=== PATIENT | female | born 1945 | race Caucasian/White ===

== ENCOUNTER → 2017-04-18 | Outpatient (CLI) | payer MEDICARE, BC ==
[~2017-04-18] MED LIST: AMOXICILLIN 8751 TAB PO; BIAXIN 500MG T500 MG PO; MOBIC 7.5MG7.5 MG PO; NEXIUM 20MG20 MG PO; SYNTHROID 0.0.025 MG PO; TENORMIN 5050 MG/TAB PO
== END ==
LOC: MC.RAD 08:52
DX: Z12.31 Encounter for screening mammogram for malignant neoplasm of breast (principal)

== ENCOUNTER → 2018-04-19 | Outpatient (CLI) | payer MEDICARE, BC | LOC: MC.RAD 10:43 | DX: Z12.31 Encounter for screening mammogram for malignant neoplasm of breast (principal) ==

== ENCOUNTER → 2019-07-14 | Outpatient (CLI) | payer MEDICARE, BC | LOC: MC.RAD 06-17 10:00 | DX: Z12.31 Encounter for screening mammogram for malignant neoplasm of breast (principal) ==

== ENCOUNTER → 2020-07-15 | Outpatient (CLI) | payer MEDICARE, BC ==
[~2020-07-15] MED LIST changes: +ASPIRIN E.C. 8181 MG PO; +BREO IH; +HYZAAR 50-12.1 UDTAB PO; +TOPROL XL 25MG25 MG PO; +VITAMIN D 400400 IU PO; +VITAMINC1000TA PO
== END ==
LOC: MC.RAD 12:42
DX: Z12.31 Encounter for screening mammogram for malignant neoplasm of breast (principal)

== ENCOUNTER 2020-08-06 09:14 | Day surgery (SDC) | payer MEDICARE, BC ==
[~2020-08-06] VITALS: Ht 170.2 cm; Wt 89.8 kg
[2020-08-06] VITALS (11 sets, daily range): BP systolic 140–160; BP diastolic 58–91; PULSE 45–57; TEMP 97.9
[~2020-08-06 09:14] MED LIST changes: -ASPIRIN E.C. 8181 MG PO; -BREO IH; -HYZAAR 50-12.1 UDTAB PO; -TOPROL XL 25MG25 MG PO; -VITAMIN D 400400 IU PO; -VITAMINC1000TA PO
[2020-08-06] MEDS ORDERED: HYZAAR 50-12.1 UDTAB PO (09:43)
[2020-08-06] MEDS ORDERED: BREO IH (09:44)
[2020-08-06] MEDS ORDERED: ASPIRIN E.C. 8181 MG PO (09:44)
[2020-08-06] MEDS ORDERED: TOPROL XL 25MG25 MG PO (09:46)
[2020-08-06] MEDS ORDERED: VITAMINC1000TA PO (09:46)
[2020-08-06] MEDS ORDERED: VITAMIN D 400400 IU PO (09:46)
[2020-08-06 09:54] LABS: HEMATOCRIT 40.4 % (37.0-47.0); HEMOGLOBIN 13.3 g/dl (12.5-16.0); MEAN CELL VOLUME 85 fl (80.0-100.0); MEAN CORPUSCULAR HEMOGLOBIN 28 pg (27.0-31.0); MEAN CORPUSCULAR HGB CONC 33 g/dl (33.0-37.0); MEAN PLATELET VOLUME 10.5 fl (7.4-10.4); PLATELET COUNT 239 K/mm3 (130-400); RED BLOOD COUNT 4.77 M/mm3 (4.10-5.30); REDCELL DISTRIBUTION WIDTH-CV 14.6 % (11.5-14.5)
[2020-08-06 10:06] LABS: INR 1.2 (0.8-3.0); PROTHROMBIN TIME 13.7 SECONDS (9.7-12.8)
[2020-08-06 10:08] LABS: PARTIAL THROMBOPLASTIN TIME 34.8 SECONDS (26.0-37.0)
[2020-08-06 10:09] LABS: CALCIUM 9.6 mg/dL (8.4-10.2); CREATININE, serum 0.75 (0.52-1.25); POTASSIUM 3.8 mmol/L (3.4-5.0)
--- NOTE | 2020-08-06 11:31 | NUR ---
SEE MERGE FOR ALL MEDICATION ADMINISTRATION TIMES, INTRA AND POST SEDATION ASSESSMENTS
--- NOTE | 2020-08-06 15:30 | NUR ---
DC instructions reviewed with pt and , both express understanding. Pt has dressed, rt femoral puncture site remains soft to palpation, and dressing is clean, dry and intact after activity. She is steady on feet. IV DC'd with catheter intact. She is assisted out by wheelchair to 's car.
== END 2020-08-06 17:17 | disposition home or self-care (01) ==
LOC: COL.CAR 09:14
PROVIDERS: Internal Medicine Interventional Cardiology
DX: I25.10 Atherosclerotic heart disease of native coronary artery without angina pectoris (principal); I10 Essential (primary) hypertension; I49.1 Atrial premature depolarization; I49.3 Ventricular premature depolarization; R09.89 Other specified symptoms and signs involving the circulatory and respiratory systems; Z20.822 Contact with and (suspected) exposure to COVID-19; Z79.82 Long term (current) use of aspirin; Z79.899 Other long term (current) drug therapy
CPT/HCPCS: C1760; C1769; C1894; J1644; J2250; J3010

== ENCOUNTER 2021-06-24 10:03 | Day surgery (SDC) | payer MEDICARE, BC ==
[~2021-06-24] VITALS: Ht 167.6 cm; Wt 85.3 kg
[~2021-06-24 10:03] MED LIST changes: +ASPIRIN E.C. 8181 MG PO; +BREO IH; +HYZAAR 50-12.1 UDTAB PO; +TOPROL XL 25MG25 MG PO; +VITAMIN D 400400 IU PO; +VITAMINC1000TA PO
[2021-06-24 11:16] VITALS: BP 152/83; PULSE 69; TEMP 97.2
[2021-06-24] MEDS ORDERED: LIALDA 1.2 GM1.2 GM PO (11:50)
[2021-06-24] MEDS ORDERED: PREDNISONE 5MG5 MG PO (11:50)
[2021-06-24] MEDS ORDERED: MACROBID 1100 MG/CAP PO (11:51)
[2021-06-24 12:30] VITALS: BP 168/81; PULSE 66; TEMP 98
--- NOTE | 2021-06-24 12:30 | NUR ---
pt returned to [facility], ambulated to b/r, some incontinence but new gown and pad given. pt sits up in chair, drinks coffee, in room, no c/o
[2021-06-24 12:45] VITALS: BP 150/70; PULSE 57
[2021-06-24 13:00] VITALS: BP 147/67; PULSE 60
--- NOTE | 2021-06-24 13:00 | NUR ---
Dr patel see pt and discuss case, reviewed discharge inst. with pt on moderate sedation, precautions and followup. pt has appt for referral, also H & P copy given to pt per Dr request. iv d'cd intact. pt up in room, dressed, used and b/r and discharaged via w/c to car with at 1330
== END 2021-06-24 13:30 | disposition home or self-care (01) ==
LOC: SDCO 10:03
DX: K51.90 Ulcerative colitis, unspecified, without complications (principal); K56.609 Unspecified intestinal obstruction, unspecified as to partial versus complete obstruction; K57.31 Diverticulosis of large intestine without perforation or abscess with bleeding; Z79.899 Other long term (current) drug therapy; Z90.89 Acquired absence of other organs
CPT/HCPCS: J2704; J7120

== ENCOUNTER → 2021-06-30 | Outpatient (CLI) | payer MEDICARE, BC ==
[~2021-06-30] MED LIST changes: +LIALDA 1.2 GM1.2 GM PO; +MACROBID 1100 MG/CAP PO; +PREDNISONE 5MG5 MG PO
[2021-06-30 17:59] LABS: CALCIUM 8.9 mg/dL (8.4-10.2); CREATININE, serum 0.75 mg/dL (0.57-1.11); POTASSIUM 4.4 mmol/L (3.5-4.5)
== END ==
LOC: ZCOL.LAB 15:42
PROVIDERS: Internal Medicine Interventional Cardiology
DX: I82.403 Acute embolism and thrombosis of unspecified deep veins of lower extremity, bilateral (principal)

== ENCOUNTER → 2022-03-07 | Outpatient (CLI) | payer MEDICARE, BC ==
[~2022-03-07] MED LIST changes: +ELIQUIS 5MG PO; +LASIX 20MG TABL20 MG PO; +NEURONTIN100 MG/CAP PO; +NORCO 325 MG-51 TAB PO; +TYLENOL 500MG500 MG PO
== END ==
LOC: MC.RAD 11:11
DX: Z12.31 Encounter for screening mammogram for malignant neoplasm of breast (principal)

== ENCOUNTER → 2023-07-26 | Outpatient (CLI) | payer MEDICARE, BC | LOC: MC.RAD 12:37 | DX: Z12.31 Encounter for screening mammogram for malignant neoplasm of breast (principal) ==

== ENCOUNTER → 2023-12-18 | Outpatient (CLI) | payer MEDICARE, BC | LOC: COL.RAD 11:09 | DX: M17.12 Unilateral primary osteoarthritis, left knee (principal); Z86.718 Personal history of other venous thrombosis and embolism ==